=== PATIENT | male | born 1985 | race Caucasian/White ===

== ENCOUNTER 2016-03-15 03:11 | Emergency (ER) | payer OTHER ==
[~2016-03-15] VITALS: Wt 115.0 kg
[~2016-03-15 03:11] MED LIST: ALPR1TAB2; amoxicillin
--- NOTE | 2016-03-15 04:41 | ERD ---
ER Documentation Chief Complaint Date/Time DATE: 03/15/16 TIME: 04:39 Chief Complaint woke up with c/p 0300 HPI 30-year-old male presents to emergency department for complaints of chest pain, feeling anxious, palpitations waking up today. Patient has history of anxiety, patient states that he woke up feeling very anxious and had chest pain. The chest pain has resolved. Described the pain as sharp pain, 6/10 scale, intermittent, having palpitations and tremors accompanying this. Patient takes Xanax regularly, patient states that his symptoms actually has gotten better since being here in emergency department from home. ROS All systems reviewed and are negative except as per history of present illness. Medications Home Meds Reported Medications [amoxicillin] No Conflict Check, QID 06/22/12 Alprazolam* (Xanax*) 1 Mg Tab, BID 06/22/12 Allergies Allergies: Coded Allergies: Penicillins (Verified Allergy, Unknown, 05/09/14) acetaminophen (Verified Allergy, Unknown, SWELLING, 05/09/14) codeine (Verified Allergy, Unknown, 05/09/14) nausea vomiting PMhx/Soc History of Surgery: No Hx Neurological Disorder: No Hx Respiratory Disorders: No Hx Cardiac Disorders: No Hx Psychiatric Problems: Yes (anxiety) Hx Miscellaneous Medical Probl: Yes (sleep apnea, thrombocytopenia,diabetes ) Hx Alcohol Use: No Hx Substance Use: No Hx Tobacco Use: No FmHx Family History: No coronary disease, No diabetes, No other Physical Exam Vitals Vital Signs Date Time Temp Pulse Resp B/P Pulse Ox O2 Delivery O2 Flow Rate FiO2 03/15/16 03:20 98.3 94 18 155/93 Physical Exam GENERAL: The patient is well developed and appropriate for usual state of health, in no apparent distress. CHEST: Clear to auscultation bilaterally. There are no rales, wheezes or rhonchi. HEART: Regular rate and rhythm. No murmurs, clicks, rubs or gallops. No S3 or S4. ABDOMEN: Soft, nontender and nondistended. Good bowel sounds. No rebound or guarding. No gross peritonitis. No gross organomegaly or masses. No Dong sign or McBurney point tenderness. BACK: No midline or flank tenderness. EXTREMITIES: Equal pulses bilaterally. There is no peripheral clubbing, cyanosis or edema. No focal swelling or erythema. Full range of motion. Grossly neurovascularly intact. NEURO: Alert and oriented. Cranial nerves 2-12 intact. Motor strength in all 4 extremities with 5/5 strength. Sensation grossly intact. Normal speech and gait. SKIN: There is no apparent rash or petechia. The skin is warm and dry. HEMATOLOGIC AND LYMPHATIC: There is no evidence of excessive bruising or lymphedema. No gross cervical, axillary, or inguinal lymphadenopathy. Results 24 hrs EKG was done, read by me and is normal sinus rhythm at a rate of 96, normal axis , there is no ST changes or changes in the EKG that indicates any cardiac emergencies at this time. Patient's EKG was also reviewed by Dr. Masters. Impression: no acute findings on EKG Upon calling patient for chest x-rays, patient refused to have it done, patient wants to leave AGAINST MEDICAL ADVICE, patient was explained of the risks of things that cannot be seen if there was no x-ray done, patient was advised about this, patient continued to want to sign AGAINST MEDICAL ADVICE. Patient was informed of the risks, including cardia pulmonary emergencies, pneumothorax , acute bacterial infection, pneumonia, or any other cardiopulmonary emergencies at this time, though patient's symptoms does not appear to be having other cardiopulmonary emergency at this time, patient still wants to sign out AGAINST MEDICAL ADVICE, verbalized understanding of all the risks. Patient signed the form, with this by the nurse. Patient is stable and walking out of the department, patient was advised to return if he changes his mind. Procedures/MDM Medical Decision Making: There is low suspicion for cardiopulmonary emergencies at this time. Patient has low risk factors. EKG is normal, there is no changes in the EKG that indicates cardiac emergencies. Was not able to do a chest x-ray but there is low suspicion for aortic aneurysm, myocardial infarction, pneumothorax, pleural effusion, pulmonary embolism, or any other cardiopulmonary emergencies at this time. Patient signed AGAINST MEDICAL ADVICE. Patient was stable upon walking out of the department Departure Diagnosis: Primary Impression: Chest pain Chest pain type: unspecified Qualified Code: R07.9 - Chest pain, unspecified type Condition: Stable NGHIA MAGALLANES NP Mar 15, 2016 04:41
== END 2016-03-15 05:15 | disposition left against medical advice (07) ==
LOC: FTE 03:11 → E/R 05:15
DX: R07.9 Chest pain, unspecified (principal)
CPT/HCPCS: 93005; Z7502

== ENCOUNTER 2016-06-25 04:46 | Emergency (ER) | payer OTHER ==
[~2016-06-25] VITALS: Ht 170.2 cm; Wt 104.0 kg
[2016-06-25 04:48] VITALS: Ht 170.2 cm; Wt 104.0 kg
[2016-06-25] MEDS ORDERED: KETOROLAC 60 MG INJ IM STA (05:10)
--- NOTE | 2016-06-25 05:32 | ERD ---
ER Documentation Chief Complaint Date/Time DATE: 06/25/16 TIME: 05:28 Chief Complaint left ear pain x 3 days HPI 30-year-old male presents here in emergency department for complaints of left ear pain for 3 days, patient is complaining of muffled hearing. Patient described the pain as throbbing pain, 8/10 scale, is worse upon touching the outer ear, feels swollen and has muffled hearing. Patient did not take any medications to help with symptoms. Patient did not have any trauma in the ear. Patient is a foreign body sensation in the ear. Patient denies any fever or chills. ROS All systems reviewed and are negative except as per history of present illness. Medications Home Meds Reported Medications [amoxicillin] No Conflict Check, QID 06/22/12 Alprazolam* (Xanax*) 1 Mg Tab, BID 06/22/12 Allergies Allergies: Coded Allergies: Penicillins (Verified Allergy, Unknown, 05/09/14) acetaminophen (Verified Allergy, Unknown, SWELLING, 05/09/14) codeine (Verified Allergy, Unknown, 05/09/14) nausea vomiting PMhx/Soc Medical and Surgical Hx: pt denies Medical Hx, pt denies Surgical Hx History of Surgery: No Hx Neurological Disorder: No Hx Respiratory Disorders: No Hx Cardiac Disorders: No Hx Psychiatric Problems: Yes (anxiety) Hx Miscellaneous Medical Probl: Yes (sleep apnea, thrombocytopenia,diabetes ) Hx Alcohol Use: No Hx Substance Use: No Hx Tobacco Use: No Smoking Status: Never smoker FmHx Family History: No coronary disease, No diabetes, No other Physical Exam Vitals Vital Signs Date Time Temp Pulse Resp B/P Pulse Ox O2 Delivery O2 Flow Rate FiO2 06/25/16 04:48 98.2 91 20 140/94 98 Physical Exam GENERAL: The patient is well developed and appropriate for usual state of health, in no apparent distress. HEENT: Atraumatic. Ears: Normal tympanic membrane, no erythema or bulging. Left ear canal noted to be erythematous and swollen, no discharge noted, tenderness on palpation on the outer ear area, no swelling on the pinna noted. No right ear canal swelling. No ear discharge. Nose: normal nasal turbinates, no erythema or swelling. Normal nasal discharge. Throat: oropharynx clear. No tonsillar swelling or tonsillar exudates. No lymphadenopathy. CHEST: Clear to auscultation bilaterally. There are no rales, wheezes or rhonchi. HEART: Regular rate and rhythm. No murmurs, clicks, rubs or gallops. No S3 or S4. ABDOMEN: Soft, nontender and nondistended. Good bowel sounds. No rebound or guarding. No gross peritonitis. No gross organomegaly or masses. No Dong sign or McBurney point tenderness. BACK: No midline or flank tenderness. EXTREMITIES: Equal pulses bilaterally. There is no peripheral clubbing, cyanosis or edema. No focal swelling or erythema. Full range of motion. Grossly neurovascularly intact. NEURO: Alert and oriented. Cranial nerves 2-12 intact. Motor strength in all 4 extremities with 5/5 strength. Sensation grossly intact. Normal speech and gait. SKIN: There is no apparent rash or petechia. The skin is warm and dry. HEMATOLOGIC AND LYMPHATIC: There is no evidence of excessive bruising or lymphedema. No gross cervical, axillary, or inguinal lymphadenopathy. Results 24 hrs Current Medications Medications (Trade) Dose Ordered Sig/Bashir Route PRN Reason Start Time Stop Time Status Last Admin Dose Admin Ketorolac Tromethamine (Toradol) 60 mg ONCE STAT IM 06/25/16 05:10 06/25/16 05:12 DC Patient was given medication for pain here in emergency department, after treatment, patient verbalized feeling much better. Patient's pain is improved. Procedures/MDM Medical decision making: Patient symptoms most likely is consistent with left otitis externa, no symptoms of otitis media or mastoiditis. No cellulitis. No foreign body in the ear. No TM perforation. No symptoms of sepsis at this time. Patient was given prescription for ibuprofen, Gilberts, Corticosporin otic drops, is advised to follow-up with primary care doctor in 2-3 days for reevaluation of symptoms. Patient was advised to return to emergency department for any worsening symptoms. Departure Diagnosis: Primary Impression: Otitis externa Otitis externa type: unspecified type Laterality: left Chronicity: acute Qualified Code: H60.502 - Acute otitis externa of left ear, unspecified type Condition: Stable Patient Instructions: External Ear Infection (Adult) NGHIA MAGALLANES NP Jun 25, 2016 05:32
[2016-06-25] MEDS ORDERED: NPH10OT LEFT EAR (05:35)
[2016-06-25] MEDS ORDERED: TRAM50TA2 PO (05:35)
[2016-06-25] MEDS ORDERED: IBUP-1542 PO (05:35)
== END 2016-06-25 05:45 | disposition home or self-care (01) ==
LOC: FTE 04:46
DX: H60.502 Unspecified acute noninfective otitis externa, left ear (principal); E11.9 Type 2 diabetes mellitus without complications
CPT/HCPCS: 96372; J1885; Z7502